=== PATIENT | female | born 1995 | race Caucasian/White ===

== ENCOUNTER 2021-12-26 02:10 | Emergency (ER) | payer MEDICAID ==
[~2021-12-26] VITALS: Ht 157.5 cm; Wt 45.5 kg
[2021-12-26 07:54] VITALS: BP 123/83
--- NOTE | 2021-12-26 07:56 | NUR ---
PT SLEEPING, DIFFICULT TO AROUSE, MUMBLES ANSWERS
[2021-12-26] MEDS ORDERED: ketorolac trometh inj. 60 MG/2 ML VIAL IM ONE (08:00)
[2021-12-26] MEDS ORDERED: HYDR-3965 PO (09:41)
== END 2021-12-26 10:22 | disposition home or self-care (01) ==
LOC: ER 02:11
DX: M79.605 Pain in left leg (principal); M25.562 Pain in left knee; S82.145D Nondisplaced bicondylar fracture of left tibia, subsequent encounter for closed fracture with routine healing; F15.90 Other stimulant use, unspecified, uncomplicated; Z59.00 Homelessness unspecified; Z79.899 Other long term (current) drug therapy; X58.XXXD Exposure to other specified factors, subsequent encounter
CPT/HCPCS: 29530; 73560; 96372; 99283; J1885